=== PATIENT | female | born 1985 | race American Indian/Alaskan Native ===

== ENCOUNTER 2017-02-27 11:58 | Emergency (ER) | payer SELFPAY ==
--- NOTE | 2017-02-27 13:28 | EDM.PDOC ---
<Zenaida Flores Colelen - Last Filed: 02/27/17 13:29> ED HPI GENERAL MEDICAL PROBLEM - General Chief Complaint: ENT Problem Stated Complaint: TOOTH PAIN Time Seen by Provider: 02/27/17 13:10 - Related Data Allergies Allergy/AdvReac Type Severity Reaction Status Date / Time No Known Allergies Allergy Verified 02/13/17 19:24 CDT Home Meds: Home Meds Multivit-Min/Iron Fum/Folic AC [Incpf-Ulqdtji-Eqifobqv Tablet] 1 tab PO DAILY [History] Amoxicillin 500 mg PO BID #14 capsule 02/27/17 [Rx] Gabapentin [Neurontin] 300 mg PO TID PRN #20 cap 02/27/17 [Rx] Ibuprofen 600 mg PO TID PRN #30 tablet 02/27/17 [Rx] Course - Vital Signs Last Recorded V/S: Last Vital Signs Temp 98.4 F 02/27/17 12:32 Pulse 71 02/27/17 12:32 Resp 18 02/27/17 12:32 BP 121/85 02/27/17 12:32 Pulse Ox 100 02/27/17 12:32 Departure - Departure Time of Disposition: 13:29 Disposition: Home, Self-Care 01 Condition: Good Clinical Impression: Dental caries Fracture of tooth Qualifiers: Encounter type: initial encounter - Discharge Information Prescriptions: Amoxicillin 500 mg PO BID #14 capsule Gabapentin [Neurontin] 300 mg PO TID PRN #20 cap PRN Reason: Pain Ibuprofen 600 mg PO TID PRN #30 tablet PRN Reason: Pain Instructions: Tooth Injuries, Lcpn-to-[id number] Forms: ED Department Discharge Additional Instructions: See dentist as scheduled Amoxicillin 500mg twice a day for 1 week Gabapentin 300mg 3 times a day as needed for pain Ibuprofen 600mg every 8 hours as needed for pain Warm moist compresses to face for discomfort. <Mer Stearns - Last Filed: 02/27/17 17:01> ED HPI GENERAL MEDICAL PROBLEM - General Source of Information: Reports: Patient History Limitations: Reports: No Limitations - History of Present Illness INITIAL COMMENTS - FREE TEXT/NARRATIVE: Jenny is here today for the evaluation of dental pain. Two weeks ago, she reports that her 2nd top molar "cracked" without any precipitating events such as chewing, drinking, or eating. She has sensitivities to hot and cold drinks and with air when taking a deep breath in. Her main concern today is the dental pain, which has progressed over the last two weeks and currently describes it as sharp and constant and worse at night. She has noticed bleeding from her gums when she brushes her teeth and has tried to Dentrex, Ibuprofen, and Tylenol which has not provided any relief from her current symptoms. The patient was recently diagnosed with Strep throat and finished a 7 day course of Amoxicillin today. The patient has made an appointment to see her dentist and the earliest she can get in is March 10. She currently rates per pain as a 10/ 10 in severity and reports having a foul taste in her mouth. 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: Reports: Psychiatric History: Reports: Anxiety, Depression - Past Surgical History Female Surgical History: Reports: Other (See Below) Other Female Surgeries/Procedures: hernia repair Social & Family History - Family History Family Medical History: Noncontributory - Tobacco Use Smoking Status *Q: Current Every Day Smoker Years of Tobacco use: 12 Packs/Tins Daily: 0.2 Second Hand Smoke Exposure: Yes - Caffeine Use Caffeine Use: Reports: None - Alcohol Use Days Per Week of Alcohol Use: 2 Number of Drinks Per Day: 8 Total Drinks Per Week: 16 - Recreational Drug Use Recreational Drug Use: No Drug Use in Last 12 Months: Yes Recreational Drug Type: Reports: Marijuana/Hashish, Methamphetamine Recreational Drug Use Frequency: Not Used In Over 2 Months ED ROS ENT - Review of Systems Review Of Systems: See Below Constitutional: Reports: No Symptoms HEENT: Reports: Dental Pain (dental pain to upper left maxillary molar, complains of foul taste in mouth. ) Respiratory: Reports: No Symptoms. Denies: Shortness of Breath, Wheezing, Pleuritic Chest Pain, Cough Cardiovascular: Reports: No Symptoms ED EXAM, ENT - Physical Exam Exam: See Below Exam Limited By: No Limitations General Appearance: Alert, No Apparent Distress Mouth/Throat: Dental Pain (2nd from last molar on left side cracked, no edema, erythema present to gum line, no drainage, no tenderness to percussion ). No: Dental Tenderness (no tenderness to percussion. ), Lip Ulcers, Oral Ulcers Head: Normocephalic Neck: Supple. No: Lymphadenopathy (L), Lymphadenopathy (R) Respiratory/Chest: No Respiratory Distress, Lungs Clear, Normal Breath Sounds Cardiovascular: Regular Rate, Rhythm, No Edema. No: No Murmur, Systolic Murmur , Gallop/S3, Gallop/S4 Course - Re-Assessments/Exams Free Text/Narrative Re-Assessment/Exam: Jenny presented today with complaints dental pain, which has been getting progressively worse. She has had very little pain relief from Tylenol, Ibuprofen , and dental paste. Given her recent course of antibiotics for strep and the reports of having a foul taste her mouth, which could possibly be attributed to drainage, will prescribe an additional 7 day course of Amoxicillin 500 mg BID and Gabapentin for pain control. She should follow-up with her dental appointment on March 10. The patient verbalized understanding of the treatment plan and is in agreement.
== END 2017-02-27 13:44 | disposition home or self-care (01) ==
LOC: JD.ED 11:58
CPT/HCPCS: 99283